=== PATIENT | female | born 1960 | race Caucasian/White ===

== ENCOUNTER → 2024-07-13 09:55 | Outpatient (REF) | payer OTHER, SELFPAY ==
[2024-07-13 10:48] LABS: % Basophils 0.5 % (0-2); % Immature Granulocytes 0.2 % (0-0.5); % Lymphocytes 41.3 % (20.5-51.1); % Monocytes 6.5 % (1.7-9.3); % Neutrophils 50.5 % (42.2-75.2); Absolute Eosinophils 0.1 10^3/uL (0-0.7); Absolute Lymphocytes 3.5 10^3/uL (1.2-3.4); Absolute Monocytes 0.5 10^3/uL (0.1-0.6); Absolute Neutrophils 4.2 10^3/uL (1.4-6.5); Hematocrit 37.9 % (37.0-47.0); Hemoglobin 12.9 g/dL (12.0-16.0); Mean Corpuscular Hgb 30.2 pg (27.0-31.0); Mean Corpuscular Volume 88.8 fL (81.0-99.0); Mean Platelet Volume 9.3 fL (7.4-10.4); Nucleated Red Blood Cells % 0 %; Platelet Count 252 10^3/uL (130-400); Red Blood Cell Count 4.27 10^6/uL (4.20-5.40); Red Cell Dist. Width 13.5 % (11.5-14.5); White Blood Cell Count 8.4 10^3/uL (4.8-10.8)
[2024-07-13 11:14] LABS: ALT (SGPT) 24 U/L (0-35); AST (SGOT) 30 U/L (14-36); Albumin 4.3 g/dl (3.5-5.0); Alkaline Phosphatase 79 U/L (38-126); Blood Urea Nitrogen 14 mg/dl (7-17); Calcium 9.4 mg/dl (8.4-10.2); Carbon Dioxide 28 mmol/L (22-30); Chloride 102 mmol/L (98-107); Glucose 120 mg/dl (70-99); Potassium 3.8 mmol/L (3.5-5.1); Sodium 139 mmol/L (135-145); Total Bilirubin 1.1 mg/dl (0.2-1.3); Total Protein 7.1 g/dl (6.3-8.2); eGFR > 60.00
== END ==
LOC: REG 09:55
PROVIDERS: ATTENDING PHYSICIAN Internal Medicine Rheumatology; FAMILY PHYSICIAN Family Medicine
DX: M81.0 Age-related osteoporosis without current pathological fracture (principal); Z51.81 Encounter for therapeutic drug level monitoring
CPT/HCPCS: 36415; 80053; 85025

== ENCOUNTER → 2024-11-04 08:07 | Outpatient (REF) | payer OTHER, SELFPAY | LOC: HWRAD 08:07 | PROVIDERS: ATTENDING PHYSICIAN Internal Medicine Rheumatology; FAMILY PHYSICIAN Family Medicine | DX: M81.0 Age-related osteoporosis without current pathological fracture (principal) | CPT/HCPCS: 77080 ==

== ENCOUNTER → 2025-03-13 12:28 | Outpatient (REF) | payer OTHER, SELFPAY | LOC: WOUND 12:28 | PROVIDERS: ATTENDING PHYSICIAN Surgery; FAMILY PHYSICIAN Family Medicine | DX: S51.001A Unspecified open wound of right elbow, initial encounter (principal); S51.051A Open bite, right elbow, initial encounter; W54.0XXA Bitten by dog, initial encounter; K21.9 Gastro-esophageal reflux disease without esophagitis; F33.1 Major depressive disorder, recurrent, moderate; Z85.3 Personal history of malignant neoplasm of breast | CPT/HCPCS: 11042; 99203 ==

== ENCOUNTER → 2025-03-20 09:00 | Outpatient (REF) | payer OTHER, SELFPAY | LOC: WOUND 09:00 | PROVIDERS: ATTENDING PHYSICIAN Surgery; FAMILY PHYSICIAN Family Medicine | DX: S51.001A Unspecified open wound of right elbow, initial encounter (principal); S51.051A Open bite, right elbow, initial encounter; W54.0XXA Bitten by dog, initial encounter; K21.9 Gastro-esophageal reflux disease without esophagitis; Z85.3 Personal history of malignant neoplasm of breast; F33.1 Major depressive disorder, recurrent, moderate | CPT/HCPCS: 11042 ==

== ENCOUNTER → 2025-03-28 07:49 | Outpatient (REF) | payer OTHER, SELFPAY ==
[2025-03-28 08:38] LABS: Hematocrit 35.2 % (37.0-47.0); Hemoglobin 11.8 g/dL (12.0-16.0); Mean Corp Hgb Conc. 33.5 g/dL (33.0-37.0); Mean Corpuscular Volume 86.3 fL (81.0-99.0); Platelet Count 279 10^3/uL (130-400); Red Cell Dist. Width 13.1 % (11.5-14.5)
[2025-03-28 09:08] LABS: ALT (SGPT) 17 U/L (0-35); AST (SGOT) 25 U/L (14-36); Albumin 4.1 g/dl (3.5-5.0); Alkaline Phosphatase 64 U/L (38-126); Blood Urea Nitrogen 10 mg/dl (7-17); Calcium 9.2 mg/dl (8.4-10.2); Carbon Dioxide 30 mmol/L (22-30); Chloride 102 mmol/L (98-107); Glucose 107 mg/dl (70-99); Potassium 3.6 mmol/L (3.5-5.1); Sodium 141 mmol/L (135-145); Total Protein 7.0 g/dl (6.3-8.2); eGFR > 60.00
[2025-03-28 09:29] LABS: Vitamin D, 25-OH*** 35.8 ng/mL (30-80)
[2025-03-28 09:45] LABS: Nucleated Red Blood Cells % 0 %
== END ==
LOC: REG 07:49
PROVIDERS: ATTENDING PHYSICIAN Physician Assistant; FAMILY PHYSICIAN Family Medicine; OTHER PHYSICIAN Internal Medicine Rheumatology
DX: E55.9 Vitamin D deficiency, unspecified (principal); Z51.81 Encounter for therapeutic drug level monitoring; Z87.39 Personal history of other diseases of the musculoskeletal system and connective tissue
CPT/HCPCS: 36415; 80053; 82306; 85025

== ENCOUNTER 2025-03-28 08:13 | Outpatient (REF) | payer OTHER, SELFPAY | END 2025-03-28 23:59 | disposition home or self-care (01) | LOC: WOUND 08:13 | PROVIDERS: ATTENDING PHYSICIAN Surgery; FAMILY PHYSICIAN Family Medicine | DX: S51.001A Unspecified open wound of right elbow, initial encounter (principal); S51.051A Open bite, right elbow, initial encounter; W54.0XXA Bitten by dog, initial encounter; K21.9 Gastro-esophageal reflux disease without esophagitis; Z85.3 Personal history of malignant neoplasm of breast; F33.1 Major depressive disorder, recurrent, moderate | CPT/HCPCS: 11042 ==

== ENCOUNTER 2025-04-03 10:09 | Outpatient (REF) | payer OTHER, SELFPAY | END 2025-04-03 23:59 | disposition home or self-care (01) | LOC: WOUND 10:09 | PROVIDERS: ATTENDING PHYSICIAN Surgery; FAMILY PHYSICIAN Family Medicine | DX: S51.001A Unspecified open wound of right elbow, initial encounter (principal); S51.051A Open bite, right elbow, initial encounter; W54.0XXA Bitten by dog, initial encounter; K21.9 Gastro-esophageal reflux disease without esophagitis; F33.1 Major depressive disorder, recurrent, moderate; Z85.3 Personal history of malignant neoplasm of breast | CPT/HCPCS: 11042 ==

== ENCOUNTER 2025-04-24 10:03 | Outpatient (REF) | payer OTHER, SELFPAY | END 2025-04-24 23:59 | disposition home or self-care (01) | LOC: WOUND 10:03 | PROVIDERS: ATTENDING PHYSICIAN Registered Nurse; FAMILY PHYSICIAN Family Medicine | DX: S51.051A Open bite, right elbow, initial encounter (principal); W54.0XXA Bitten by dog, initial encounter; K21.9 Gastro-esophageal reflux disease without esophagitis; F33.1 Major depressive disorder, recurrent, moderate; Z85.3 Personal history of malignant neoplasm of breast | CPT/HCPCS: 99212 ==